=== PATIENT | female | born 1985 | race Native Hawaiian/Other Pacific Islander ===

== ENCOUNTER 2020-11-16 11:34 | Outpatient (CLI) | payer BC ==
[2020-11-16 11:58] LABS: PLATELET COUNT 357 K/uL (152-353)
== END 2020-11-16 21:00 | disposition home or self-care (01) ==
LOC: LABW 11:34
PROVIDERS: ATTEND Nurse Practitioner Family
DX: D64.9 Anemia, unspecified (principal)
CPT/HCPCS: 36415; 82272; 82607; 83550; 85027